=== PATIENT | female | born 1950 | race Caucasian/White ===

== ENCOUNTER → 2017-10-23 10:40 | Outpatient (CLI) | payer MEDICARE, OTHER, SELFPAY ==
--- NOTE | 2017-11-01 17:39 | PM.PFT.1 ---
Pulmonary Function Test Referral & Results Date Patient Seen: 10/23/17 Requesting provider: Gisele Hadley Results: This is a methacholine challenge Initial FEV1 was 2.14 L or 89% of predicted. There was a 21% drop in FEV1 following maximum methacholine dose administration. This returned to baseline following bronchodilator administration. 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
== END ==
PROVIDERS: PCP Physician Assistant Medical; Visit Provider Physician Assistant Medical
DX: R05 Cough (principal)
CPT/HCPCS: 94060; 94070; 95070

== ENCOUNTER 2018-03-28 20:08 | Emergency (ER) | payer MEDICARE, OTHER, SELFPAY ==
[2018-03-28 20:32] VITALS: BP 160/92; PULSE 101; RESP 16; TEMP 36.6; O2SAT 100; BMI 40.3
--- NOTE | 2018-03-28 20:48 | ED.EXTPRO ---
HPI - Extremity Problem General Chief complaint: Extremity Problem,Nontraumatic Stated complaint: pain left leg pain for several weeks Time Seen by Provider: 03/28/18 20:47 Source: patient Mode of arrival: ambulatory Limitations: no limitations History of Present Illness HPI Narrative: 68-year-old female here for evaluation of left lower extremity pain and aching. She states that has been going on for the past 4 weeks however worsening over the past couple days. She states that is a circumferential pain from her lower leg up to the upper leg. No specific trauma. No swelling. No changes in skin. Has been taking aspirin for it. Related Data Home Medications Medication Instructions Recorded Confirmed Fish Oil 1,000 mg PO QDAY #0 tab 10/31/15 IPRATROPIUM BROMIDE (ATROVENT 1 spray INTRANASAL #15 ml 10/31/15 NASAL SPRAY) [ZERTIC] #0 10/31/15 aspirin #0 10/31/15 atorvastatin [Lipitor] 40 mg PO HS #30 tab 10/31/15 cholecalciferol (vitamin D3) 1,000 unit PO QDAY #0 tab 10/31/15 [Vitamin D3] duloxetine [Cymbalta] 60 mg PO QDAY #30 cap 10/31/15 losartan-hydrochlorothiazide 1 tab PO QDAY #0 tab 10/31/15 [Hyzaar] nebivolol [Bystolic] 5 mg PO QDAY #0 tab 10/31/15 Allergies Allergy/AdvReac Type Severity Reaction Status Date / Time Sulfa (Sulfonamide Allergy Severe Rash Verified 03/28/18 20:36 Antibiotics) [SULFA (SULFONAMIDE ANTIBIOTICS)] codeine [CODEINE] Allergy Intermediate Verified 03/28/18 20:36 Review of Systems Constitutional Denies fever(s) Cardiovascular Denies chest pain and Denies dyspnea Respiratory Denies dyspnea Gastrointestinal Gastrointestinal: Denies abdominal pain, Denies nausea and Denies vomiting Musculoskeletal Reports myalgias (Left lower extremity), Denies arthralgias, Denies joint swelling and Denies tingling Comments: Left leg pain Integumentary/Breasts Denies rash Neurologic Denies restless legs, Denies tingling and Denies paresthesias Hematologic/Lymphatic Denies easy bleeding and Denies easy bruising PFSH Medical History Diabetes (Acute) Surgical History No pertinent past surgical history (Acute) Social History Smoking Status: Never smoker Exam Initial Vital Signs Initial Vital Signs: Vital Signs Temperature 97.8 F 03/28/18 20:32 Pulse Rate 101 H 03/28/18 20:32 Respiratory Rate 16 03/28/18 20:32 Blood Pressure 160/92 H 03/28/18 20:32 Pulse Oximetry 100 03/28/18 20:32 Const General: cooperative, healthy appearing, comfortable, well developed, well groomed and No acute distress Orientation: alert, awake and oriented x3 HENMT Head: normal to inspection and normocephalic Resp Effort & Inspection: normal respiratory effort Auscultation: clear to auscultation bilaterally Cardio Rate: regular rate Rhythm: regular rhythm Pulses: dorsalis pedis present on the left GI Inspection: non-distended Palpation: soft Skin Lesions: no lesions Rashes: no rashes Neuro Motor: muscle tone normal throughout Sensory Exam: no sensory deficits noted Extrem Other: No acute deformities left lower extremity Psych Appearance: grossly normal and well kempt Course Orders Ordered: ED Orders 03/28/18 20:58 US periph venous low extrem lt Stat Vital Signs - 8 hr 03/28/18 20:32 03/28/18 21:34 03/28/18 22:35 Temperature 97.8 F Pulse Rate 101 H 96 H 94 H Respiratory Rate 16 17 16 Blood Pressure 160/92 H Blood Pressure [Right Arm] 149/73 H 116/53 L Pulse Oximetry 100 95 96 MDM - Extremity (Nontraumatic) Imaging Data Venous US: Radiologist's impression: No DVT left lower extremity MDM Narrative Medical decision making narrative: Patient is neurovascular intact. No signs of infection. No DVT. Symptoms have been going on for the past 4 weeks. Will hold on any x-rays secondary to the fact that it is unlikely there is any bony abnormalities. Unsure as the exact etiology of the symptoms however feel that an emergent condition is unlikely. I discussed this with the patient. Informed her she needs to follow up with her primary care doctor to discuss further evaluation and treatment. She was given return precautions. She expressed understanding and agreement Discharge Plan Departure Patient Disposition: Home Clinical Impression: Left leg pain Instructions: DI for Leg Pain Activity Restrictions/Additional Instructions: I do recommend that he start on a course of anti-inflammatories such as Motrin or Naprosyn or Aleve. I would also keep her leg elevated as much as possible. Continue on all of your other medications as directed. Follow up with your primary care doctor. Prescriptions: No Action losartan-hydrochlorothiazide [Hyzaar] 100 MG/25 MG tablet 1 tab PO QDAY Qty: 0 RF: 0 duloxetine [Cymbalta] 60 MG capsule,delayed release(DR/EC) 60 mg PO QDAY Qty: 30 RF: 0 aspirin 81 MG tablet,delayed release (DR/EC) Qty: 0 RF: 0 nebivolol [Bystolic] 5 MG tablet 5 mg PO QDAY Qty: 0 RF: 0 Fish Oil 1,000 mg PO QDAY Qty: 0 RF: 0 IPRATROPIUM BROMIDE (ATROVENT NASAL SPRAY) 1 spray Intranasal Qty: 15 RF: 0 [ZERTIC] Qty: 0 RF: 0 cholecalciferol (vitamin D3) [Vitamin D3] 1,000 UNIT tablet 1,000 unit PO QDAY Qty: 0 RF: 0 atorvastatin [Lipitor] 40 MG tablet 40 mg PO HS Qty: 30 RF: 0
--- NOTE | 2018-03-28 20:58 | DI.US.S_ITS ---
PROCEDURE: US PERIPH VENOUS LOW EXTREM LT INDICATIONS: LLE pain and swelling concern for DVT TECHNIQUE: Real-time imaging, as well as color and pulse Doppler interrogation, were performed of the lower extremity deep veins from the inguinal ligament to the popliteal fossa. COMPARISON: None. FINDINGS: The deep veins are normally compressible, and free of intraluminal thrombus. Color and pulse Doppler demonstrate normal phasic intraluminal flow. There is normal augmentation response to distal compression maneuver. IMPRESSION: No visualized deep venous thrombosis. Dictated by: Oneida Hernadez M.D. on 03/29/2018 at 9:34 Approved by: Oneida Hernadez M.D. on 03/29/2018 at 9:34
[2018-03-28 21:34] VITALS: BP 149/73; PULSE 96; RESP 17; O2SAT 95
[2018-03-28 22:35] VITALS: BP 116/53; PULSE 94; RESP 16; O2SAT 96
[2018-03-28 23:53] VITALS: PULSE 92; RESP 18; O2SAT 98
== END 2018-03-28 23:53 | disposition home or self-care (01) ==
PROVIDERS: Emergency Provider Emergency Medicine; PCP Physician Assistant Medical
DX: M79.605 Pain in left leg (principal)
CPT/HCPCS: 93971; 99283; 99284